=== PATIENT | female | born 1945 | race Caucasian/White ===

== ENCOUNTER 2022-02-24 06:28 | Outpatient (REF) | payer SELFPAY ==
[2022-02-24 06:48] LABS: Hematocrit 33.8 % (37.0-47.0); Hemoglobin 11.3 g/dl (12.0-16.0); Mean Corpuscular HGB Conc 33.4 g/dl (31.0-35.0); Mean Corpuscular Hemoglobin 32.1 pg (27.0-33.0); Mean Platelet Volume 8.7 fL (9.4-12.3); Platelet Count 212 X10*3/uL (160-400); Red Blood Count 3.52 X10*6/uL (4.20-5.50); Red Cell Distribution Width 12.6 % (11.0-16.0); White Blood Count 4.9 X10*3/uL (4.8-10.8)
[2022-02-24 06:59] LABS: Anion Gap 16 (12-20); Blood Urea Nitrogen 9 mg/dL (9-16); Calcium 9.5 mg/dL (8.4-10.2); Carbon Dioxide 22 mmol/L (22-29); Chloride 102 mmol/L (96-108); Estimated Glomerular Filt Rate 48; Glucose Random 87 mg/dL (60-115); Potassium 4.6 mmol/L (3.3-5.1); Sodium 135 mmol/L (135-145)
== END 2022-02-24 06:29 | disposition home or self-care (01) ==
LOC: HO.MMNH2L 06:28
PROVIDERS: Visit Provider Family Medicine
DX: Z02.2 Encounter for examination for admission to residential institution (principal); I10 Essential (primary) hypertension
CPT/HCPCS: 36415; 80048; 85027

== ENCOUNTER 2022-03-03 06:22 | Outpatient (REF) | payer MEDICARE, SELFPAY ==
[2022-03-03 06:45] LABS: Hematocrit 31.9 % (37.0-47.0); Hemoglobin 10.6 g/dl (12.0-16.0); Mean Corpuscular HGB Conc 33.2 g/dl (31.0-35.0); Mean Corpuscular Hemoglobin 31.9 pg (27.0-33.0); Mean Corpuscular Volume 96.1 fL (80.0-98.0); Mean Platelet Volume 8.7 fL (9.4-12.3); Platelet Count 201 X10*3/uL (160-400); Red Blood Count 3.32 X10*6/uL (4.20-5.50); Red Cell Distribution Width 12.4 % (11.0-16.0); White Blood Count 4.7 X10*3/uL (4.8-10.8)
[2022-03-03 07:21] LABS: Anion Gap 14 (12-20); Blood Urea Nitrogen 10 mg/dL (9-16); Calcium 9.3 mg/dL (8.4-10.2); Carbon Dioxide 24 mmol/L (22-29); Chloride 101 mmol/L (96-108); Estimated Glomerular Filt Rate 47; Glucose Random 80 mg/dL (60-115); Potassium 4.4 mmol/L (3.3-5.1); Sodium 135 mmol/L (135-145)
== END 2022-03-03 06:23 | disposition home or self-care (01) ==
LOC: HO.MMNH2L 06:22
PROVIDERS: Visit Provider Family Medicine
DX: Z02.2 Encounter for examination for admission to residential institution (principal); I10 Essential (primary) hypertension
CPT/HCPCS: 36415; 80048; 85027

== ENCOUNTER 2022-03-10 06:50 | Outpatient (REF) | payer MEDICARE, SELFPAY ==
[2022-03-10 07:32] LABS: Hematocrit 31.1 % (37.0-47.0); Hemoglobin 10.3 g/dl (12.0-16.0); Mean Corpuscular HGB Conc 33.1 g/dl (31.0-35.0); Mean Corpuscular Hemoglobin 31.9 pg (27.0-33.0); Mean Corpuscular Volume 96.3 fL (80.0-98.0); Mean Platelet Volume 8.7 fL (9.4-12.3); Platelet Count 222 X10*3/uL (160-400); Red Blood Count 3.23 X10*6/uL (4.20-5.50); Red Cell Distribution Width 12.8 % (11.0-16.0); White Blood Count 5.5 X10*3/uL (4.8-10.8)
[2022-03-10 07:38] LABS: Anion Gap 16 (12-20); Blood Urea Nitrogen 12 mg/dL (9-16); Calcium 9.5 mg/dL (8.4-10.2); Carbon Dioxide 22 mmol/L (22-29); Chloride 100 mmol/L (96-108); Estimated Glomerular Filt Rate 47; Glucose Random 79 mg/dL (60-115); Potassium 4.2 mmol/L (3.3-5.1); Sodium 134 mmol/L (135-145)
== END 2022-03-10 06:51 | disposition home or self-care (01) ==
LOC: HO.MMNH2L 06:50
PROVIDERS: Visit Provider Family Medicine
DX: Z02.2 Encounter for examination for admission to residential institution (principal); I10 Essential (primary) hypertension
CPT/HCPCS: 36415; 80048; 85027

== ENCOUNTER 2025-02-05 16:03 | Emergency (ER) | payer MEDICARE, SELFPAY ==
--- NOTE | ~2025-02-05 | CT_ITS ---
CLINICAL HISTORY: Left leg weakness, unknown onset CT head without contrast Comparison: None Findings: No intracranial mass, midline shift, hydrocephalus, or acute hemorrhage. There is generalized cerebral volume loss. Moderate nonspecific periventricular and subcortical white matter changes are identified, which may be seen in the setting of chronic small vessel ischemic disease. 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 Visualized paranasal sinuses and mastoid air cells appear clear. No acute skull fracture. Impression: 1. No acute intracranial abnormality. No acute intracranial hemorrhage. CT angiography head and neck with contrast. 3-D postprocessing Comparison: None Findings: The bilateral common carotid arteries and cervical portions of the internal carotid arteries appear patent. There is approximately 50% luminal stenosis by NASCET criteria at the proximal aspect of the left common carotid artery related to vessel tortuosity. Evaluation is mildly limited by motion artifact in this region. The vertebral arteries appear patent bilaterally at the level of the neck. No carotid or vertebral dissection is seen. There is no evidence of vasculitis. No focal consolidation or effusion identified within the visualized portions of the bilateral lung apices. The intracranial vertebrobasilar system appears patent. Cerebellar and posterior cerebral arteries are intact. There is a origin of the left posterior cerebral artery. Multifocal areas of luminal narrowing are present at the right posterior cerebral artery. Intracranial internal carotid arteries appear patent. Calcifications are identified at the intracranial portions of the bilateral ICAs. Middle/anterior cerebral arteries also appear patent. Multifocal areas of luminal narrowing are present at the right anterior cerebral artery. There also appears to be moderate luminal narrowing involving a right M2 branch. No aneurysms or abrupt cutoffs visualized. Impression: 1. Patent bilateral carotid and vertebral arterial systems at the level of the neck with a proximally 50% luminal stenosis involving the proximal aspect of the left common carotid artery related to vessel tortuosity. 2. Patent anterior and posterior intracranial arterial circulation. No large vessel occlusion. This document has been electronically signed by: Rustam Diaz MD on 02/05/2025 23:29:05
[2025-02-05 16:25] VITALS: BP 106/62; BP 107/66; PULSE 129; PULSE 130; RESP 20; TEMP 36.8; O2SAT 97; O2SAT 98; BMI 23.4
[2025-02-05 16:30] VITALS: BP 107/66; PULSE 129; RESP 20; TEMP 36.8; O2SAT 98
--- NOTE | 2025-02-05 16:30 | ECG_ITS ---
Test Reason : tachycardia Blood Pressure : */* mmHG Vent. Rate : 127 BPM Atrial Rate : 127 BPM P-R Int : 164 ms QRS Dur : 68 ms QT Int : 290 ms P-R-T Axes : * 15 -23 degrees QTcB Int : 421 ms Sinus tachycardia with Premature atrial complexes Otherwise normal ECG Referred By: Jes Esteban Electronically Signed By: John Mathews
--- NOTE | 2025-02-05 16:33 | PC.NURSE ---
79 F from [facility], with weakness since today, had nausea and abdominal pain that has gone away. Pt is A+Ox1-2 to self/place, has dementia. RR even and unlabored, denies CP or SOB. Pt covered in stool upon arrival, cleaned up and placed in rosibel. No visible s/s of disress. Pt is tachycardic, aware.
--- NOTE | 2025-02-05 16:34 | ED_ITS ---
HPI - General Adult General Chief complaint: Weakness Stated complaint: n/d unable to ambulate, dementia can not give Time Seen by Provider: 02/05/25 16:24 Source: patient and EMS Mode of arrival: EMS Limitations: other History of Present Illness ED Provider: Dr. Jes Esteban HPI narrative: Patient comes to the emergency room by EMS from [facility] dementia unit. According to EMS, the staff reported that patient was feeling weak and was complaining of abdominal pain and nausea. Here on arrival to the emergency room, patient denies any abdominal pain or nausea. Patient has history of dementia and is unable to provide significant history. At this time, patient states that she feels well and has no complaints. According to EMS, the staff did not report any recent falls, seems that the patient was sent to the emergency room without any documents from the detention facility Related Data Allergies Allergy/AdvReac Type Severity Reaction Status Date / Time No Known Allergies (No Known Allergy Verified 02/05/25 16:29 Allergies*) Review of Systems 2 Review of Systems: Constitutional : No Weight loss, No Fever, No Chills, No Night Sweats, No Fatigue, No Malaise ENT/Mouth : No Hearing loss, No Ear Pain, No Nasal Congestion, No Sinus Pain, No Hoarseness, No sore throat, No Rhinorrhea, No Swallowing Difficulty Eyes: No Eye Pain, No Swelling, No Redness, No Foreign Body, No Discharge, No Vision Changes Cardiovascular : No Chest Pain, No SOB, No Dyspnea on Exertion, No Orthopnea, No Edema, No Palpitations Respiratory : No Cough, No Sputum, No Wheezing, No Smoke Exposure, No Dyspnea Gastrointestinal : Complaining of nausea that is self-resolved, No Vomiting, No Diarrhea, No Constipation, No abdominal Pain, No Hematochezia, No Melena Genitourinary : no irregular bleeding, No Dysuria, No Urinary Frequency, No Hematuria, No Urinary Incontinence, No Urgency, No Flank Pain, No Urinary Flow Changes, No Hesitancy Musculoskeletal : No joint pain, No Myalgias, No Joint Swelling Skin : No Skin Lesions, No rash Neuro : No Weakness, No Numbness, No Paresthesias, No Loss of Consciousness, No Dizziness, No Headache Psych : No Anxiety/Panic, No Depression, No SI/HI/AH/VH, No Social Issues, Heme/Lymph: No Bruising, No Bleeding,No Lymphadenopathy Endocrine : No Polyuria, No Polydipsia, No Temperature Intolerance Yes Other (Unreliable, history of dementia) [facility] Past Medical History Medical History (Updated 02/06/25 @ 00:33 by Jes Esteban MD) Dementia Social History Social History Smoked in Last 30 Days: No Use of substances other than those prescribed or required for medical reasons: No Advance Directives: No Advance Directives Information Provided: No Do you have a plan to hurt others: No Plan Physical Exam ED Exam Exam: Appearance: Alert. Oriented X1. No acute distress. Eyes: Pupils equal, round and reactive to light. ENT: Pharynx normal. Neck: Normal inspection. Neck supple. No lymph nodes noted. No crepitus CVS: Normal heart rate and rhythm. Pulses normal. Normal S1 and S2 Respiratory: No respiratory distress. Breath sounds normal. No Wheezing. No rales Abdomen: Soft and nontender. No rigidity. No distention. Skin: Skin warm and dry. Normal skin color. Normal skin turgor. Extremities: No lower extremity edema. No Lacerations. No Rash Neuro: Oriented X 1. No motor deficit. No sensory deficit. Moving all extremities. No slurred speech. CN 2 through 12 grossly intact Psych: calm, cooperative, normal affect Vital Signs: Vital Signs - 24 hr 02/05/25 16:25 02/05/25 16:30 02/05/25 18:20 Temperature 98.3 F 98.3 F 98.3 F Pulse Rate 129 H 129 H 83 Respiratory Rate 20 20 16 Blood Pressure 107/66 107/66 100/70 Pulse Oximetry 98 98 100 Oxygen Delivery Method Room Air Room Air Room Air 02/05/25 19:31 Temperature Pulse Rate 87 Respiratory Rate 19 Blood Pressure 111/67 Pulse Oximetry 98 Oxygen Delivery Method Room Air BMI result Body Mass Index 23.4 Course Course Course Narrative: At this time, patient has no complaints. Patient has history of dementia and her history is unreliable. We will obtain basic lab work Patient denies nausea at this time Medications Administered Discontinued Medications Generic Name Dose Route Start Last Admin Trade Name Freq PRN Reason Stop Dose Admin Sodium Chloride 500 mls @ 999 mls/hr 02/05/25 18:15 02/05/25 19:11 Ns IV 02/05/25 18:45 Infused .Q31M FUENTES Infusion Iohexol 70 ml 02/05/25 21:59 02/05/25 22:09 Iohexol 350 Mg/Ml 100 Ml Infus..Btl IV 02/05/25 22:00 70 ml ONCE ONE Administration Medical Decision Making Medical Decision Making [facility] Narrative: My interpretation of EKG: Normal sinus rhythm, heart rate 127, no ST segment depression or elevation, nonspecific T-wave inversion in lead 3, QRS 421 My interpretation of labs: Patient's white blood cell count 12, no significant abnormality in patient's hematology,, sodium 131, patient has had previously had episodes of mild hyponatremia, creatinine 1.43, urinalysis negative for UTI. It was noted when patient is alone in her room, patient's heart rate goes between 70s and 80s. With any minimal exertion or if someone goes into her room, patient's heart rate goes up to 120s to 130s, and upon exiting the patient's room, heart rate returns to the 70s to 80s. We attempted to ambulate the patient. Patient is able to stand up, orthostatic vitals negative. However, patient states that she is afraid of walking on her left leg. Patient denies any injuries, denies any pain. Unclear if she means weakness? However, when patient is in bed, patient has normal flexion and extension of the hip and knee bilaterally. No drift. CTA scan of the head and neck did not show any acute abnormality. Initially, patient was afraid to walk. However, with some encouragement, patient was able to walk with minimal assistance. Patient no longer has a abdominal pain or nausea. In the emergency room, patient has been awake, alert, sleeps. Heart rate at rest and sleeping in the 60s When patient wakes up, patient's heart rate may jump up to 110. Patient states she feels well. Has no complaints. Differential Diagnosis Differential Diagnoses: The differential diagnosis associated with the presentation includes (UTI, gastritis, gastroenteritis, dyspepsia) Admission/Observation Consideration of admission/observation: Escalation of care including admission/observation considered (Given patient's age, presentation and symptoms, observation was considered) Lab Data [facility] Lab Attestation statement: I reviewed the patient's lab results. 02/05/25 17:27 02/05/25 17:27 Labs: Lab Results 02/05/25 02/05/25 Range/Units 17:17 17:27 WBC 12.0 H (4.8-10.8) X10*3/uL RBC 4.21 D (4.20-5.50) X10*6/uL Hgb 13.0 D (12.0-16.0) g/dl Hct 38.4 D (37.0-47.0) % MCV 91.2 (80.0-98.0) fL MCH 30.9 (27.0-33.0) pg MCHC 33.9 (31.0-35.0) g/dl RDW 13.2 (11.0-16.0) % Plt Count 471 H D (160-400) X10*3/uL MPV 8.6 L (9.4-12.3) fL Immature Gran % (Auto) 0.5 H (0.0-0.4) % Neut % (Auto) 84.3 H (45-73) % Lymph % (Auto) 5.6 L (20-40) % Thurston % (Auto) 8.5 (2-11) % Eos % (Auto) 0.8 (0-4) % Baso % (Auto) 0.3 (0-2) % Lymph # (Auto) 0.7 L (1.2-4.9) X10*3/uL Thurston # (Auto) 1.0 (0.1-1.2) X10*3/uL Eos # (Auto) 0.1 (0.0-0.4) X10*3/uL Baso # (Auto) 0.0 (0.0-0.2) X10*3/uL Abs Immat Gran (auto) 0.06 H (0.00-0.03) X10*3/uL Absolute Neuts (auto) 10.1 H (2.0-8.3) x10*3/uL Absolute Nucleated RBC 0.000 (0.0-0.012) X10*3/uL Nucleated RBC % (auto) 0.0 (0.0-0.2) /100WBC Sodium 131 L (135-145) mmol/L Potassium 4.2 (3.3-5.1) mmol/L Chloride 99 (96-108) mmol/L Carbon Dioxide 23 (22-29) mmol/L Anion Gap 13 (12-20) BUN 13 (9-16) mg/dL Creatinine 1.43 H (0.5-1.4) mg/dL Estim Creat Clear Calc 22.9 Estimated GFR 35 Random Glucose 98 (60-115) mg/dL Calcium 9.0 (8.4-10.2) mg/dL Total Bilirubin 0.6 (0.0-1.0) mg/dL Direct Bilirubin 0.2 (0.0-0.5) mg/dL AST 24 (5-31) U/L ALT 7 (0-31) U/L Alkaline Phosphatase 162 H (39-117) U/L Total Protein 6.7 (6.5-8.0) g/dL Albumin 4.0 (3.5-5.0) g/dL Urine Color Yellow Urine Appearance Clear Urine pH 7.0 (5.0-9.0) Ur Specific Dix 1.010 (1.005-1.025) Urine Protein Negative (Neg-Trace) mg/dL Urine Glucose (UA) Negative (Negative) mg/dL Urine Ketones Trace (Negative) mg/dL Urine Blood Negative (Negative) Urine Nitrite Negative (Negative) Ur Leukocyte Esterase Negative (Negative) Independent Interpretation I performed an independent interpretation of an: EKG and CT Scan Radiology Impression Discussion of test interpretation with radiology: I have reviewed the radiologist's reading. Radiologist Impression: Impression: 1. Patent bilateral carotid and vertebral arterial systems at the level of the neck with a proximally 50% luminal stenosis involving the proximal aspect of the left common carotid artery related to vessel tortuosity. 2. Patent anterior and posterior intracranial arterial circulation. No large vessel occlusion. No acute intracranial abnormality. No acute intracranial hemorrhage. Critical Care Time Critical Care Time Critical Care Time: Yes Total Critical Care Time: 40 Attestation: I have personally provided critical care time. Time includes review of lab data, radiology results, discussion with consultants, and monitoring for potential decompensation. Intervention performed as documented. Discharge Plan Discharge Clinical Impression: Weakness, Nausea Patient Disposition: Home, Self-Care Instructions: Acute Nausea and Vomiting (ED), Weakness (ED) Additional Instructions: Please follow-up with your primary care physician tomorrow. If you have any worsening or new symptoms, please return to the emergency room or call 911 Print Language: Prydeinig
[2025-02-05 17:29] LABS: Appearance Urine Clear; Glucose Urine UA Negative (Negative); PH 7.0 (5.0-9.0); Specific Gravity - Urine 1.010 (1.005-1.025)
[2025-02-05 17:30] LABS: MANUAL DIFF FLAG NO
[2025-02-05 17:37] LABS: Hematocrit 38.4 % (37.0-47.0); Hemoglobin 13.0 g/dl (12.0-16.0); Imm Gran Abs Auto 0.06 X10*3/uL (0.00-0.03); Imm Gran Pct Auto 0.5 % (0.0-0.4); Lymphocytes Absolute Auto 0.7 X10*3/uL (1.2-4.9); Mean Corpuscular HGB Conc 33.9 g/dl (31.0-35.0); Mean Corpuscular Hemoglobin 30.9 pg (27.0-33.0); Mean Corpuscular Volume 91.2 fL (80.0-98.0); NRBC Abs Auto 0.000 X10*3/uL (0.0-0.012); NRBC Pct Auto 0.0 /100WBC (0.0-0.2); Platelet Count 471 X10*3/uL (160-400); Red Blood Count 4.21 X10*6/uL (4.20-5.50); White Blood Count 12.0 X10*3/uL (4.8-10.8)
[2025-02-05 17:46] LABS: Alanine Aminotransferase 7 U/L (0-31); Albumin Level 4.0 g/dL (3.5-5.0); Alkaline Phosphatase 162 U/L (39-117); Anion Gap 13 (12-20); Aspartate Amino Transferase 24 U/L (5-31); Blood Urea Nitrogen 13 mg/dL (9-16); Calcium 9.0 mg/dL (8.4-10.2); Carbon Dioxide 23 mmol/L (22-29); Chloride 99 mmol/L (96-108); Creatinine Clr Calc Pharmacy 22.9; Estimated Glomerular Filt Rate 35; Potassium 4.2 mmol/L (3.3-5.1); Sodium 131 mmol/L (135-145); Total Protein 6.7 g/dL (6.5-8.0)
[2025-02-05 18:20] VITALS: BP 100/70; PULSE 83; RESP 16; TEMP 36.8; O2SAT 100
[2025-02-05 19:31] VITALS: BP 111/67; PULSE 87; RESP 19; O2SAT 98
--- OUTSIDE RECORDS SUMMARY | 2025-02-05 20:51 | XMS_ITS | Patient Health Record ---
Author Organization [facility] Address [address] [facility] [place] [address] Care Team Providers Care Operations Executive Name Role Phone Roxi SAUCEDA, Luz Elena Dickson Primary Care Provider Diana Salcedo Unavailable [phone] Reason For Referral No Information Medications Medication SIG (Take, Route, Frequency, Duration) Notes Start Date End Date Status Magnesium Active Multivitamin & Mineral Active Vitamin B1 Active Levothyroxine Sodium 125 MCG Oral; Duration: 90 Active Pantoprazole Sodium 40 MG Oral; Duration: 90 Active Sucralfate 1 GM Oral; Duration: 90 Active Vitamin B12 Active Pepcid 20 MG 1 tablet at bedtime Orally Once a day; Duration: 30 day(s) Active Folic Acid 1 MG 1 tablet Orally Once a day; Duration: 30 day(s) Active Social History Tobacco Use: Social History Observation Description Date Details (start date - stop date) Former Smoker NA - NA Tobacco Use/Smoking Question Answer Notes Are you a: former smoker Additional Findings: Tobacco Non-User Cu rrent non-smoker, but past smoking history unknown Alcohol Screen Question Answer Notes Did you have a drink containing alcohol in the p ast year? No Points 0 Interpretation Negative Problems Problem Type SNOMED Code ICD Code Onset Dates Problem Status W/U Status Risk Notes Problem Bilateral atherosclerosis of arteries of lower limbs (disorder) (11947524225621550 ) Atherosclerosis of artery of both lower extremities (I70.203) Active confirmed Plan Of Treatment No Information Insurance Providers Payer Name Payer Address Payer Phone Subscriber Number Group Number Insured Name Patient Relationship to Insured Coverage Start Date Coverage End Date Medicare National Govt Sv[employer] [address] [facility] [place] [address] [id number] Nallely Law Self - patient is the insured [facility] Others [address] [place] [address] [phone] [id number] Nallely Law Self - patient is the insured Medical (General) History Medical History History ICD Code Back,Hip,and Knee pain Hiatal hernia Sickle cell disease Sinus conditions thyroid Measles Mumps Chicken pox Joint implants/screws Seasonal allergies Surgical History Surgery Date(Month/Year) knee replacement x2 Hospitalization History Reason Date(Month/Year) [facility]- Fall and infected wound on foot- 1 night stay 09/2018
--- OUTSIDE RECORDS SUMMARY | 2025-02-05 20:51 | XMS_ITS | Clinical Summary ---
Author Organization [facility] Address [address] [place] [address], [place] [address] Care Team Providers Care Tobacco Prevention Health Educator Name Role Phone Unavailable Primary Care Provider Unavailabl e Social History Tobacco Use Types Packs/Day Years Used Date Smoking Tobacco: Never Assessed Comments Unknown Sex and Gender Information Value Date Recorded Sex Assigned at Not on file Legal Sex Female 8:00 AM EDT Gender Identity Not on file Sexual Orientation Not on file Plan of Treatment Health Maintenance Due Date Last Done Comments Influenza Vaccine (#1) 2025 Pneumococcal Vaccine: 50+ Years Completed 04/18/2015, 04/07/2011 Hepatitis B Vaccine Aged Out No longe r eligible based on patient's age to complete [place] [address] Medicare [facility] Medicare [facility]
--- OUTSIDE RECORDS SUMMARY | 2025-02-05 20:51 | XMS_ITS ---
Author Organization [facility] Care Team Providers Care Street Commissioner Name Role Phone Tito Castillo Unavailable Unavailable Gia Villarreal Unavailable Unavailable Nida Wilcox Unavailable Unavailable Allergies and adverse reactions Code CodeSystem Substance Reaction Severity StartDate Concern Status 7804 RXNORM oxyCODONE Unknown 02/04/2022 active Care Team Name Role Address Phone Organization Dates Tito Castillo PCP [address] [place] [address], [address], [place] (Office): : [facility] 02/04/2022 - 03/11/2022 Gia Villarreal [address] [address], [place], [address], [place] (Office): : [facility] 02/04/2022 - 03/11/2022 Nida Wilcox [address], [address], [place] (Office): [facility] 02/04/2022 - 03/11/2022 Immunizations Immunization Status Vaccine Details Vaccine Code CodeSystem Date Notes Tetanus completed tetanus immune globulin 13 CVX created date: 02/19/2022 administere d date: 08/17/2019 (Shingles) Vaccine completed zoster vaccine, live 121 CVX created date: 02/19/2022 administere d date: 02/18/2016 PCV13 (Pneumococcal Conjugate)Vaccine completed pneumococcal conjugate vaccine, 13 valent 133 CVX created date: 02/19/2022 administere d date: 04/18/2015 PPSV23 (Previous Pneumococcal Polysaccharide)Va ccine completed pneumococcal polysaccharide vaccine, 23 valent 33 CVX created date: 02/19/2022 administere d date: 04/07/2011 Tdap (Tetanus, Diphtheria, Pertussis) completed tetanus toxoid, reduced diphtheria toxoid, and acellular pertussis vaccine, adsorbed 115 CVX created date: 02/19/2022 administere d date: 09/25/2008 SARS-COV-2 (COVID-19) completed SARS-COV-2 (COVID-19) vaccine, mRNA, spike protein, LNP, preservative free, 30 mcg/0.3mL dose Mfg: [email or web address] Step 2 of Multi-step with next step required 208 CVX created date: 02/19/2022 administere d date: 07/17/2020 SARS-COV-2 (COVID-19) completed SARS-COV-2 (COVID-19) vaccine, mRNA, spike protein, LNP, preservative free, 30 mcg/0.3mL dose Mfg: [email or web address] Step 1 of Multi-step with next step required 208 CVX created date: 02/19/2022 administere d date: 06/26/2020 [employer] Covid-19 Booster (SARS-COV-2) vaccine completed SARS-COV-2 (COVID-19) vaccine, mRNA, spike protein, LNP, preservative free, 30 mcg/0.3mL dose Mfg: [email or web address] 208 CVX created date: 02/19/2022 administere d date: 12/13/2021 [facility] Covid-19 Bi-valent Solution completed SARS-COV-2 (COVID-19) vaccine, mRNA, spike protein, LNP, bivalent, preservative free, 30 mcg/0.3 mL dose, franky-sucrose formulation lotNumber: [id number] expiry: 05/01/2022 Mfg: [employer] COVID 19 Given 0.3 ml Left Deltoid intramuscularly 300 CVX created date: 02/28/2022 consent date: 02/28/2022 administere d date: 02/28/2022 Mental Status Section Date Assessment Total Score Description 03/11/2022 BIMS 05 severe cognitiv e impairment CAM 0 No delirium ind icated PHQ-9 00 02/07/2022 BIMS 05 severe cognitiv e impairment CAM 0 No delirium ind icated PHQ-9 00 Problems Problem # Description Date of onset Resolved Date Code CodeSystem Concern Status 1 ALCOHOL DEPENDENCE, UNCOMPLICATED 02/04/[address] active 2 CHRONIC KIDNEY DISEASE, STAGE 3A 02/04/[address] active 3 CHRONIC OBSTRUCTIVE PULMONARY DISEASE, UNSPECIFIED 02/04/[address] active 4 DISPLACED FRACTURE OF PROXIMAL PHALANX OF RIGHT THUMB, SUBSEQUENT ENCOUNTER FOR FRACTURE WITH ROUTINE HEALING 02/04/[address] active 5 DYSPHAGIA, OROPHARYNGEAL PHASE 02/04/[address] active 6 ESSENTIAL (PRIMARY) HYPERTENSION 02/04/[address] active 7 HYPOTHYROIDISM, UNSPECIFIED 02/04/[address] active 8 OTHER LACK OF COORDINATION 02/04/[address] active 9 OTHER PANCYTOPENIA 02/04/2022 071125025 SNOMED C T active 10 OTHER SPECIFIED DISORDERS OF BONE DENSITY AND STRUCTURE, MULTIPLE SITES 02/04/[address] active 11 UNSPECIFIED ATRIAL FIBRILLATION 02/04/[address] active 12 UNSPECIFIED PROTEIN-CALORIE MALNUTRITION 02/04/[address] active 13 WERNICKE'S ENCEPHALOPATHY 02/04/[address] active Reason for Referral No Reasons for Referral Entered Social History Social History Observation Description Start Date End Date Code Code System Current Smoking Status Tobacco smoking consumption unknown 178757925 SNOMED CT Sex Assigned At Female 1945 42305-2 LOINC Gender Identity Sexual Orientation Vital Signs Code Code System Vitals Name Values and Units Timing Information 36885-4 LOINC Pain Level Value=0.0 03/11/2022 9279-1 LOINC Respiratory Rate Value=18.0 Units=/m in 03/10/2022 8462-4 [facility] Blood Pressure-Diastolic Value=64 Un its=mmHg 03/10/2022 8480-6 [facility] Blood Pressure-Systolic Pbrgn=701 Un its=mmHg 03/10/2022 8310-5 [facility] Body Temperature Value=97.1 Units= F 03/10/2022 8867-4 [facility] Heart rate Value=78.0 Units=/min 13838-0 [facility] O2 % BldC Oximetry Value=98.0 Units= % 03/10/2022 17862-1 [facility] Weight Siccv=198.2 Units=Lbs 05/2021 8302-2 [facility] Height Value=64.0 Units=Inches 02/04/2022
--- OUTSIDE RECORDS SUMMARY | 2025-02-05 20:51 | XMS_ITS | Clinical Summary ---
Author Organization [facility] Address [address] [place] [address] Care Team Providers Care Compensation Specialist Name Role Phone Sarika Corona MD Primary Care Provider [phone] Allergies Active Allergy Reactions Criticality Noted Date Comments Oxycodone 09/16/2023 Medications Medication Sig Dispensed Refills Start Date End Date Status valACYclovir (VALTREX) 1000 MG tablet Take 1 tablet (1,000 mg total) by mouth 2 (two) times a day. 0 Active amLODIPine (NORVASC) tablet 5 mg 0 09/02/2023 Active buPROPion (WELLBUTRIN XL) 150 MG 24 hr tablet 0 08/02/2023 Active furosemide (LASIX) 20 MG tablet 0 07/26/2023 Active levothyroxine (SYNTHROID) tablet 50 mcg 0 08/09/2023 Active loperamide (IMODIUM) 2 MG capsule 0 08/09/2023 Active metoprolol tartrate (LOPRESSOR) 25 MG tablet 0 08/09/2023 Active QUEtiapine (SEROquel) 25 MG tablet 0 08/16/2023 Active eltrombopag (Promacta) 50 MG tablet Take 1 tablet (50 mg total) by mouth daily. Administer on an empty stomach, 1 hour before or 2 hours after a meal. 30 tablet 11 03/16/2024 Active Active Problems Problem Noted Date Diagnosed Date Thrombocytopenia 09/16/2023 Alcoholic cirrhosis of liver without ascites 05/2023 Moderate dementia without be havioral disturbance, psychotic disturbance, mood disturbance, or anxiety 09/16/2023 Family History Medical History Relation Name Comments Cancer Father prostate Relation Name Status Comments Father Social History Tobacco Use Types Packs/Day Years Used Date Smoking Tobacco: Former Cigarettes Smokeless Tobacco: Never Tobacco Cessation:Counseling Given: Not Answered Comments: Smoked in my 30's Alcohol Use Standard Drinks/Week Comments Yes 1 (1 standard drink = 0.6 oz pur e alcohol) Sex and Gender Information Value Date Recorded Sex Assigned at Not on file Gender Identity Not on file Sexual Orientation Not on file Job Start Date Occupation Industry Not on file Not on file Not on file Last Filed Vital Signs Vital Sign Reading Time Taken Comments Blood Pressure 137/68 09/16/2023 2:55 PM EDT Pulse 70 09/16/2023 2:55 PM EDT Temperature 36.4 C (97.5 F) 09/16/2023 2:55 PM EDT Respiratory Rate - - Oxygen Saturation 100% 09/16/2023 2:55 PM EDT Inhaled Oxygen Concentration - - Weight 55.7 kg (122 lb 12.8 oz) 09/16/2023 2:55 PM EDT Height 149.9 cm (4' 11 ) 09/16/2023 2:55 PM EDT Body Mass Index 24.8 09/16/2023 2:55 PM EDT Plan of Treatment Health Maintenance Due Date Last Done Comments Hepatitis C Screening 1945 Depression Screening 1957 Preventative Health Evaluation 1963 Shingrix-Zoster Vaccine (1 of 2) 1995 Fall Risk Assessment 2010 Osteoporosis Screening (DEXA Scan) 2010 DTap / Tdap / Td (2 - Td or Tdap) 09/25/2018 09/25/2008 RSV Adult > 60+ Yrs or (1 - 1-dose 75+ series) 2020 COVID-19 Vaccine ( season) 2025 02/28/2022, 12/13/2021, 07/17/2020, Additional history exists Influenza Vaccine (#1) 2025 9, 02/04/2018, 02/19/2017, Additional history exists Pneumococcal Vaccine Completed 04/18/2015, 04/07/20 11 Hepatitis B Vaccines Aged Out No long er eligible based on patient's age to complete this topic RSV Ped < 20 months Aged Out No longe r eligible based on patient's age to complete this topic Care Teams Compensation Specialist Relationship Specialty Start Date End Date Sarika Corona MD [address] [facility] BLANKA Solis PCP - General Internal Medicine 09/16/23
[2025-02-05] MEDS: iohexoL 350 MG/ML 100 ML INFUS..BTL 70 ML IV (22:09)
--- NOTE | 2025-02-06 00:05 | PC.NURSE ---
PT able to ambulate with minimal assistance, aware
--- NOTE | 2025-02-06 00:45 | PC.NURSE ---
Spoke with staff at [facility], informed staff that pt is coming back to their facility
[2025-02-06 02:45] VITALS: BP 133/67; PULSE 75; RESP 19; O2SAT 97
[2025-02-06 03:01] VITALS: BP 133/67; PULSE 75; RESP 19; TEMP 36.2; O2SAT 97
== END 2025-02-06 03:02 | disposition home or self-care (01) ==
PROVIDERS: Emergency Provider Emergency Medicine
DX: R26.81 Unsteadiness on feet (principal); F03.90 Unspecified dementia, unspecified severity, without behavioral disturbance, psychotic disturbance, mood disturbance, and anxiety; R11.0 Nausea; R00.0 Tachycardia, unspecified; R53.1 Weakness; R10.2 Pelvic and perineal pain; Z79.899 Other long term (current) drug therapy
CPT/HCPCS: 36415; 70496; 70498; 80048; 80076; 81003; 85025; 93005; 96360; 99285; Q9967

== ENCOUNTER → 2025-02-05 16:30 | Outpatient (BNV) | payer MEDICARE, SELFPAY | PROVIDERS: Emergency Provider Emergency Medicine; Visit Provider Internal Medicine Cardiovascular Disease | DX: R00.0 Tachycardia, unspecified (principal); I49.1 Atrial premature depolarization | CPT/HCPCS: 93010 ==

== ENCOUNTER → 2025-02-05 19:39 | Outpatient (BNV) | payer MEDICARE, SELFPAY | PROVIDERS: Emergency Provider Emergency Medicine; Visit Provider Radiology Diagnostic Radiology | DX: R53.1 Weakness (principal) | CPT/HCPCS: 70496; 70498 ==